=== PATIENT | male | born 1970 | race Caucasian/White ===

== ENCOUNTER 2019-02-23 20:12 | Inpatient (IN) | payer OTHER ==
[2019-02-23 20:57] VITALS: BMI 29.0
--- NOTE | 2019-02-23 21:36 | HP ---
COWS - Scale Resting Pulse: 0= [place] 80 or Below Sweatin=Flushed/Facial Moisture Restless Observation: 0= Sits Still Pupil Size: 0= Normal to Room Light Bone or Joint Aches: 0= None Runny Nose/ Eye Tearin= Runny Nose/Eyes GI Upset > 30mins: 2= Nausea/Diarrhea Tremor Observation: 0= None Yawning Observation: 1= 1-2x During Session Anxiety or Irritability: 1=Feels Anxious/Irritable Goose Flesh Skin: 0=Smooth Skin COWS Score: 8 CIWA Score - Admission Criteria [facility]ASAS Guidelines: Admission for Medically Managed Detox: Requires at least one of the followin. CIWA greater than 12 2. Seizures within the past 24 hours 3. Delirium tremens within the past 24 hours 4. Hallucinations within the past 24 hours 5. Acute intervention needed for co occurring medical disorder 6. Acute intervention needed for co occurring psychiatric disorder 7. Severe withdrawal that cannot be handled at a lower level of care (continued vomiting, continued diarrhea, abnormal vital signs) requiring intravenous medication and/or fluids 8. Admission ROS [facility] - [facility] Chief Complaint: C/O WORSENING WITHDRAWAL SX'S. SEEKING DETOX TXMENT Allergies/Adverse Reactions: Allergies Allergy/AdvReac Type Severity Reaction Status Date / Time No Known Allergies Allergy Verified 02/23/19 20:57 History of Present Illness: 48 Y.O. MALE WITH HX/O OPIOID DEPENDENCE HERE FOR DETOX. CLIENT IS REFERRED BY FELICIANO LEI. HE IS CURRENTLY ON PAROLE WITH A MANDATE TO DETOX. HE CURRENTLY IS USING HEROIN AND SBX WHEN UNABLE TO GET HEROIN. HE REPORTS DAILY USE OF 2 BAGS/ SNIFF. LAST USE 1 DAY AGO, BUT TOOK A "PIECE" OF SBX EARLIER TODAY. PRESENTS WITH C/O WITHDRAWAL SX'S. COWS 8. REPORTS LONGEST CLEAN TIME 30 MONTHS WHILE INCARCERATED.DENIES HX/O DRUG OVERDOSE, SI/HI/AVH. PMHX- DENIES PSYCH- DENIES Exam Limitations: No Limitations - Ebola screening Have you traveled outside of the country in the last 21 days: No (N) Have you had contact with anyone from an Ebola affected area: No Do you have a fever: No - Review of Systems Constitutional: Chills, Loss of Appetite, Night Sweats EENT: reports: Other (CORRECTIVE LENSES) Respiratory: reports: Other (HX/O +PPD REPORTS TXMENT) Cardiac: reports: No Symptoms Reported GI: reports: Diarrhea, Poor Appetite, Abdominal cramping : reports: No Symptoms Reported Musculoskeletal: reports: Back Pain (CHRONIC) Integumentary: reports: No Symptoms Reported Neuro: reports: No Symptoms reported Endocrine: reports: No Symptoms Reported Hematology: reports: No Symptoms Reported Psychiatric: reports: Orientated x3, Anxious Other Systems: Reviewed and Negative Patient History - Patient Medical History Hx Anemia: No Hx Asthma: No Hx Chronic Obstructive Pulmonary Disease (COPD): No Hx Cancer: No Hx Cardiac Disorders: No Hx Congestive Heart Failure: No Hx Hypertension: No Hx Hypercholesterolemia: No Hx Pacemaker: No HX Cerebrovascular Accident: No Hx Seizures: No Hx Dementia: No Hx Diabetes: No Hx Gastrointestinal Disorders: No Hx Liver Disease: No Hx Genitourinary Disorders: No Hx Sexually Transmitted Disorders: No Hx Renal Disease (ESRD): No Hx Thyroid Disease: No Hx Human Immunodeficiency Virus (HIV): No Hx Hepatitis C: Yes (REPORTS TXMENT) Hx Depression: No Hx Suicide Attempt: No Hx Bipolar Disorder: No Hx Schizophrenia: No Other Medical History: HX/O +PPD - Patient Surgical History Past Surgical History: Yes Hx Abdominal Surgery: Yes (1986 INTERNAL BLEEDING) Anesthesia Reaction: No - PPD History Previous Implant?: Yes Documented Results: Positive w/o proof Implanted On Prior R Admission?: No PPD to be Administered?: No - Smoking Cessation Smoking history: Current every day smoker Have you smoked in the past 12 months: Yes Aproximately how many cigarettes per day: 20 Cigars Per Day: 0 Hx Chewing Tobacco Use: Yes Initiated information on smoking cessation: Yes 'Breaking Loose' booklet given: 02/23/19 - Substance & Tx. History Hx Alcohol Use: No Hx Substance Use: Yes Substance Use Type: Heroin Hx Substance Use Treatment: Yes ([facility]) - Substances abused Heroin Substance route: Inhalation Frequency: Daily Amount used: 2 BAGS Age of first use: 38 Date of last use: 02/22/19 Family Disease History - Family Disease History Family Disease History: Heart Disease: Mother (HX/O ALCOHOLISM BY NH), Other: Father (HX/O ALCOHOLISM BY NH), Mother, Brother (HEROIN OVERDOSE - ), Son (HEROIN OVERDOSE ) Admission Physical Exam BHS - Vital Signs Vital Signs: Vital Signs - 24 hr 02/23/19 02/23/19 20:55 21:18 Temperature 97.8 F 97.8 F Respiratory 18 18 Rate Blood Pressure 120/77 120/77 - Physical General Appearance: Yes: Anxious HEENTM: Yes: EOMI, Normocephalic, Normal Voice, DANIEL, Pharynx Normal, Other (TOP /BOTTOM DENTURES) Respiratory: Yes: Chest Non-Tender, Lungs Clear, Normal Breath Sounds, No Respiratory Distress, No Accessory Muscle Use Neck: Yes: No masses,lesions,Nodules, Supple, Trachea in good position Breast: Yes: Breast Exam Deferred Cardiology: Yes: Regular Rhythm, Regular Rate, S1, S2 Abdominal: Yes: Non Tender, Soft, Increased Bowel Sounds, Surgical Scar Genitourinary: Yes: Within Normal Limits (NO C/O) Back: Yes: Normal Inspection Musculoskeletal: Yes: full range of Motion, Gait Steady Extremities: Yes: Normal Capillary Refill, Normal Range of Motion, Non-Tender Neurological: Yes: Fully Oriented, Alert, Motor Strength 5/5, Depressed Affect Integumentary: Yes: Warm Lymphatic: Yes: Within Normal Limits - Diagnostic (1) Opioid dependence with withdrawal Current Visit: Yes Status: Acute (2) History of positive PPD Current Visit: Yes Status: Chronic (3) History of hepatitis C Current Visit: Yes Status: Chronic (4) Nicotine dependence Current Visit: Yes Status: Chronic Qualifiers: Nicotine product type: cigarettes Substance use status: uncomplicated Qualified Code(s): F17.210 - Nicotine dependence, cigarettes, uncomplicated (5) At risk for dehydration Current Visit: Yes Status: Acute (6) Depressed affect Current Visit: Yes Status: Acute Cleared for Admission [facility] - Detox or Rehab [facility] Level of Care: Medically Managed Detox Regimen/Protocol: Methadone Claeared for Rehab Admission: No Breathalyzer - Breathalyzer Breathalyzer: 0 Urine Drug Screen - Test Device Lot number: [id number] Expiration date: 10/20/20 - Control Is test valid?: Yes - Results Drug screen NEGATIVE: No Urine drug screen results: FEN-Fentanyl, MOP-Opiates, BUP-Suboxone Inpatient Rehab Admission - Rehab Decision to Admit Inpatient rehab admission?: No
[2019-02-23] MEDS ORDERED: IBUPROFEN 400 MG TABLET (FP) PO PRN (21:41)
[2019-02-23] MEDS ORDERED: MAGNESIUM HYDROX 2400MG/30ML ORAL SUSPENSION 30 ML CUP PO PRN (21:41)
[2019-02-23] MEDS ORDERED: NICOTINE POLACRILEX 2 MG GUM BUC PRN (21:41)
[2019-02-23] MEDS ORDERED: BISMUTH SUBSALICYLATE 524 MG/30 ML UD PO PRN (21:41)
[2019-02-23] MEDS ORDERED: METHOCARBAMOL 500 MG TABLET PO PRN (21:41)
[2019-02-23] MEDS ORDERED: ONDANSETRON *ODT* 4 MG TABLET SL PRN (21:41)
[2019-02-23] MEDS ORDERED: MAGNESIUM CITRATE 300 ML BOTTLE PO PRN (21:41)
[2019-02-23] MEDS ORDERED: MENTHOL/PHENOL 1 EACH UD MM PRN (21:41)
[2019-02-23] MEDS ORDERED: P-EPHED 60MG/TRIPROLIDI 2.5MG TABLET PO PRN (21:41)
[2019-02-23] MEDS ORDERED: hydrOXYzine PAMOATE 25 MG CAPSULE (FP) PO PRN (21:41)
[2019-02-23] MEDS ORDERED: NALOXONE HCL 0.4 MG/ML VIAL IVPUSH PRN (21:41)
[2019-02-23] MEDS ORDERED: MAG HYDROX/AL HYDROX/SIMETH 30 ML UNIT-DOSE CUP PO PRN (21:41)
[2019-02-23] MEDS ORDERED: cloNIDine HCL 0.1 MG TABLET PO PRN (21:41)
[2019-02-23] MEDS ORDERED: ACETAMINOPHEN 325 MG TABLET (FP) PO PRN ×2 (21:41)
[2019-02-23] MEDS ORDERED: DICYCLOMINE HCL 10 MG CAPSULE PO PRN (21:41)
[2019-02-23] MEDS ORDERED: guaiFENesin 200 MG/10 ML 10 ML UNIT-DOSE CUPS PO PRN (21:41)
[2019-02-23] MEDS ORDERED: METHADONE HCL 10 MG TABLET (FOR DETOX USE ONLY) PO ONE (23:00)
[2019-02-23] MEDS: THIAMINE HCL 100 MG TABLET (FP) PO SCH (23:06)
[2019-02-24] MEDS ORDERED: METHADONE HCL 5 MG TABLET (FOR DETOX USE ONLY) PO ONE (10:00)
[2019-02-24 10:09] LABS: HEMATOCRIT 45.6 % (35.4-49); HEMOGLOBIN 14.8 GM/dL (11.7-16.9); MCH 29.7 pg (25.7-33.7); MCHC 32.6 g/dl (32.0-35.9); MEAN CELL VOLUME 91.2 fl (80-96); MEAN PLT VOLUME 11.1 fl (7.5-11.1); PLATELET COUNT 166 K/MM3 (134-434); RBC 4.99 M/mm3 (4.00-5.60); RDW 13.9 % (11.9-15.9); WHITE BLOOD COUNT 6.4 K/mm3 (4.0-10.0)
[2019-02-24] MEDS: PRENATAL VITAMINS W/ FOLIC ACID TABLET (FP) PO SCH (10:14)
[2019-02-24] MEDS: NICOTINE 21 MG/24 HOURS TOPICAL PATCH TD SCH (10:14)
[2019-02-24 10:17] LABS: ALBUMIN 3.1 g/dl (3.4-5.0); ALK PHOS 48 U/L (45-117); ANION GAP 6 MMOL/L (8-16); BILIRUBIN,TOTAL 0.3 mg/dL (0.2-1); BLOOD UREA NITROGEN 10 mg/dL (7-18); CALCIUM 8.8 mg/dL (8.5-10.1); CHLORIDE 105 mmol/L (98-107); CO2 30 mmol/L (21-32); CREATININE 0.9 mg/dL (0.55-1.3); GLUCOSE,RANDOM 92 mg/dL (74-106); POTASSIUM 3.9 mmol/L (3.5-5.1); SGOT/AST 10 U/L (15-37); SGPT/ALT 15 U/L (13-61); SODIUM 140 mmol/L (136-145); TOT PROT 6.2 g/dl (6.4-8.2)
--- NOTE | 2019-02-24 11:34 | EKG ---
Test Reason : Blood Pressure : / mmHG Vent. Rate : 050 BPM Atrial Rate : 050 BPM P-R Int : 132 ms QRS Dur : 092 ms QT Int : 450 ms P-R-T Axes : 051 052 041 degrees QTc Int : 410 ms SINUS BRADYCARDIA OTHERWISE NORMAL ECG NO PREVIOUS ECGS AVAILABLE Confirmed by EMMA LOUISE MD ([id number]) on 02/24/2019 11:33:53 AM Referred By: Confirmed By:EMMA LOUISE MD
--- NOTE | 2019-02-24 15:11 | PN ---
BHS COWS - Scale Resting Pulse: 0= [place] 80 or Below Sweatin= Chills/Flushing Restless Observation: 1= Difficult to Sit Still Pupil Size: 0= Normal to Room Light Bone or Joint Aches: 0= None Runny Nose/ Eye Tearin= None GI Upset > 30mins: 2= Nausea/Diarrhea Tremor Observation of Outstretched Hands: 0= None Yawning Observation: 2= >3x During Session Anxiety or Irritability: 1=Feels Anxious/Irritable Goose Flesh Skin: 3=Piloerection COWS Score: 10 BHS Progress Note (SOAP) Subjective: Fatigue, Diarrhea, Anxious. Objective: PATIENT A & O X 3, OBSERVED AMBULATING ON UNIT. IN NO ACUTE DISTRESS. 02/24/19 15:12 Vital Signs Temperature 96.3 F L 02/24/19 09:24 Pulse Rate 43 L 02/24/19 09:24 Respiratory Rate 18 02/24/19 09:24 Blood Pressure 126/73 02/24/19 09:24 O2 Sat by Pulse Oximetry (%) Laboratory Tests 02/24/19 02/24/19 02/24/19 07:45 07:45 07:45 WBC 6.4 RBC 4.99 Hgb 14.8 Hct 45.6 MCV 91.2 MCH 29.7 MCHC 32.6 RDW 13.9 Plt Count 166 MPV 11.1 Sodium 140 Potassium 3.9 Chloride 105 Carbon Dioxide 30 Anion Gap 6 L BUN 10 Creatinine 0.9 Creat Clearance w eGFR 90.45 Random Glucose 92 Calcium 8.8 Total Bilirubin 0.3 AST 10 L ALT 15 Alkaline Phosphatase 48 Total Protein 6.2 L Albumin 3.1 L RPR Titer Nonreactive LABS NOTED. Assessment: 02/24/19 15:13 WITHDRAWAL SYMPTOMS. Plan: CONTINUE DETOX. INCREASE DAILY PO FLUID INTAKE. PRN PEPTO-BISMOL PO FOR DIARRHEA.
[2019-02-24] MEDS: THIAMINE HCL 100 MG TABLET (FP) PO SCH (22:47)
[2019-02-24] MEDS: MELATONIN 5 MG TABLETS PO PRN (22:47)
[2019-02-25] MEDS ORDERED: METHADONE HCL 10 MG TABLET (FOR DETOX USE ONLY) PO ONE (10:00)
[2019-02-25] MEDS: PRENATAL VITAMINS W/ FOLIC ACID TABLET (FP) PO SCH (10:19)
[2019-02-25] MEDS: NICOTINE 21 MG/24 HOURS TOPICAL PATCH TD SCH (10:20)
--- NOTE | 2019-02-25 14:00 | PN ---
BHS COWS - Scale Resting Pulse: 0= [place] 80 or Below Sweatin= Chills/Flushing Restless Observation: 0= Sits Still Pupil Size: 0= Normal to Room Light Bone or Joint Aches: 1= Mild Discomfort Runny Nose/ Eye Tearin= Nasal Congestion GI Upset > 30mins: 1= Stomach Cramp Tremor Observation of Outstretched Hands: 0= None Yawning Observation: 1= 1-2x During Session Anxiety or Irritability: 1=Feels Anxious/Irritable Goose Flesh Skin: 0=Smooth Skin COWS Score: 6 BHS Progress Note (SOAP) Subjective: feeling ok today ambulate on hallway social with peers in day room Objective: 02/25/19 14:00 Vital Signs Temperature 97.6 F 02/25/19 09:49 Pulse Rate 46 L 02/25/19 09:49 Respiratory Rate 18 02/25/19 09:49 Blood Pressure 120/71 02/25/19 09:49 O2 Sat by Pulse Oximetry (%) Laboratory Last Values WBC 6.4 K/mm3 (4.0-10.0) 02/24/19 07:45 RBC 4.99 M/mm3 (4.00-5.60) 02/24/19 07:45 Hgb 14.8 GM/dL (11.7-16.9) 02/24/19 07:45 Hct 45.6 % (35.4-49) 02/24/19 07:45 MCV 91.2 fl (80-96) 02/24/19 07:45 MCH 29.7 pg (25.7-33.7) 02/24/19 07:45 MCHC 32.6 g/dl (32.0-35.9) 02/24/19 07:45 RDW 13.9 % (11.9-15.9) 02/24/19 07:45 Plt Count 166 K/MM3 (134-434) 02/24/19 07:45 MPV 11.1 fl (7.5-11.1) 02/24/19 07:45 Sodium 140 mmol/L (136-145) 02/24/19 07:45 Potassium 3.9 mmol/L (3.5-5.1) 02/24/19 07:45 Chloride 105 mmol/L (98-107) 02/24/19 07:45 Carbon Dioxide 30 mmol/L (21-32) 02/24/19 07:45 Anion Gap 6 MMOL/L (8-16) L 02/24/19 07:45 BUN 10 mg/dL (7-18) 02/24/19 07:45 Creatinine 0.9 mg/dL (0.55-1.3) 02/24/19 07:45 Creat Clearance w eGFR 90.45 (>60) 02/24/19 07:45 Random Glucose 92 mg/dL (74-106) 02/24/19 07:45 Calcium 8.8 mg/dL (8.5-10.1) 02/24/19 07:45 Total Bilirubin 0.3 mg/dL (0.2-1) 02/24/19 07:45 AST 10 U/L (15-37) L 02/24/19 07:45 ALT 15 U/L (13-61) 02/24/19 07:45 Alkaline Phosphatase 48 U/L (45-117) 02/24/19 07:45 Total Protein 6.2 g/dl (6.4-8.2) L 02/24/19 07:45 Albumin 3.1 g/dl (3.4-5.0) L 02/24/19 07:45 RPR Titer Nonreactive (NONREACTIVE) 02/24/19 07:45 lab noted Assessment: 02/25/19 14:00 mild withdrawal sx Plan: continue detox
[2019-02-25 20:58] LABS: URINE APPEARANCE CLEAR; URINE BILIRUBIN NEGATIVE (NEGATIVE); URINE COLOR YELLOW; URINE GLUCOSE (UA) NEGATIVE (NEGATIVE); URINE KETONE NEGATIVE (NEGATIVE); URINE LEUK ESTERASE NEGATIVE (NEGATIVE); URINE NITRITE NEGATIVE (NEGATIVE); URINE PROTEIN NEGATIVE (NEGATIVE); URINE UROBILINOGEN 0.2 mg/dL (0.2-1.0)
[2019-02-25] MEDS: THIAMINE HCL 100 MG TABLET (FP) PO SCH (22:09)
[2019-02-25] MEDS: MELATONIN 5 MG TABLETS PO PRN (22:09)
[2019-02-26] MEDS ORDERED: METHADONE HCL 5 MG TABLET (FOR DETOX USE ONLY) PO ONE (06:00)
[2019-02-26 06:44] VITALS: BP 101/60; TEMP 97.6
[2019-02-26 06:52] VITALS: PULSE 62
--- NOTE | 2019-02-26 13:29 | DS ---
[facility] Detox Discharge Summary Admission Date: 02/23/19 Discharge Date: 02/26/19 - History Present History: Opioid Dependence Additional Comments: 48 years old male admitted on 02/23/19 for opiate withdrawal stabilization feeling better today alert no acute distress denies suicidal ideation - Physical Exam Results Vital Signs: Vital Signs Temperature 97.6 F 02/26/19 06:43 Pulse Rate 62 02/26/19 06:51 Respiratory Rate 16 02/26/19 06:43 Blood Pressure 101/60 02/26/19 06:43 O2 Sat by Pulse Oximetry (%) Pertinent Admission Physical Exam Findings: opiate withdrawal sx Laboratory Last Values WBC 6.4 K/mm3 (4.0-10.0) 02/24/19 07:45 RBC 4.99 M/mm3 (4.00-5.60) 02/24/19 07:45 Hgb 14.8 GM/dL (11.7-16.9) 02/24/19 07:45 Hct 45.6 % (35.4-49) 02/24/19 07:45 MCV 91.2 fl (80-96) 02/24/19 07:45 MCH 29.7 pg (25.7-33.7) 02/24/19 07:45 MCHC 32.6 g/dl (32.0-35.9) 02/24/19 07:45 RDW 13.9 % (11.9-15.9) 02/24/19 07:45 Plt Count 166 K/MM3 (134-434) 02/24/19 07:45 MPV 11.1 fl (7.5-11.1) 02/24/19 07:45 Sodium 140 mmol/L (136-145) 02/24/19 07:45 Potassium 3.9 mmol/L (3.5-5.1) 02/24/19 07:45 Chloride 105 mmol/L (98-107) 02/24/19 07:45 Carbon Dioxide 30 mmol/L (21-32) 02/24/19 07:45 Anion Gap 6 MMOL/L (8-16) L 02/24/19 07:45 BUN 10 mg/dL (7-18) 02/24/19 07:45 Creatinine 0.9 mg/dL (0.55-1.3) 02/24/19 07:45 Creat Clearance w eGFR 90.45 (>60) 02/24/19 07:45 Random Glucose 92 mg/dL (74-106) 02/24/19 07:45 Calcium 8.8 mg/dL (8.5-10.1) 02/24/19 07:45 Total Bilirubin 0.3 mg/dL (0.2-1) 02/24/19 07:45 AST 10 U/L (15-37) L 02/24/19 07:45 ALT 15 U/L (13-61) 02/24/19 07:45 Alkaline Phosphatase 48 U/L (45-117) 02/24/19 07:45 Total Protein 6.2 g/dl (6.4-8.2) L 02/24/19 07:45 Albumin 3.1 g/dl (3.4-5.0) L 02/24/19 07:45 Urine Color Yellow 02/25/19 09:41 Urine Appearance Clear 02/25/19 09:41 Urine pH 6.0 (5.0-8.0) 02/25/19 09:41 Ur Specific [place] 1.016 (1.010-1.035) 02/25/19 09:41 Urine Protein Negative (NEGATIVE) 02/25/19 09:41 Urine Glucose (UA) Negative (NEGATIVE) 02/25/19 09:41 Urine Ketones Negative (NEGATIVE) 02/25/19 09:41 Urine Blood Negative (NEGATIVE) 02/25/19 09:41 Urine Nitrite Negative (NEGATIVE) 02/25/19 09:41 Urine Bilirubin Negative (NEGATIVE) 02/25/19 09:41 Urine Urobilinogen 0.2 mg/dL (0.2-1.0) 02/25/19 09:41 Ur Leukocyte Esterase Negative (NEGATIVE) 02/25/19 09:41 RPR Titer Nonreactive (NONREACTIVE) 02/24/19 07:45 lab noted - Treatment Hospital Course: Detox Protocol Followed, Detoxed Safely, Responded well, Discharged Condition Good, Rehab Referral Accepted Patient has Accepted a Rehab Referral to: [facility] - Medication Discharge Medications: Ambulatory Orders NK [No Known Home Medication] 02/23/19 - Diagnosis (1) Opioid dependence with withdrawal Status: Acute (2) History of positive PPD Status: Resolved (3) History of hepatitis C Status: Chronic (4) Nicotine dependence Status: Acute Qualifiers: Nicotine product type: cigarettes Substance use status: in withdrawal Qualified Code(s): F17.213 - Nicotine dependence, cigarettes, with withdrawal - AMA Did Patient Leave Against Medical Advice: No
== END 2019-02-26 08:25 | disposition home or self-care (01) | DRG 773 ==
LOC: YASAS 20:12 → Y3N 22:32
PROVIDERS: ADMIT Surgery; ATTEND Surgery
PROC: HZ2ZZZZ Detoxification Services for Substance Abuse Treatment (ICD-10-PCS; principal; 2019-02-23)
DX: F11.23 Opioid dependence with withdrawal (principal); F17.213 Nicotine dependence, cigarettes, with withdrawal; R76.11 Nonspecific reaction to tuberculin skin test without active tuberculosis; R63.8 Other symptoms and signs concerning food and fluid intake; Z86.19 Personal history of other infectious and parasitic diseases
CPT/HCPCS: 36415; 80053; 81003; 85027; 86593; 93005; 93010

== ENCOUNTER 2021-02-04 13:17 | Inpatient (IN) | payer OTHER ==
[2021-02-04 14:34] VITALS: BMI 26.8
[2021-02-04] MEDS ORDERED: NICOTINE POLACRILEX 2 MG GUM BUC PRN (17:02)
[2021-02-04] MEDS ORDERED: MAGNESIUM CITRATE 300 ML BOTTLE PO PRN (17:02)
[2021-02-04] MEDS ORDERED: ONDANSETRON *ODT* 4 MG TABLET SL PRN (17:02)
[2021-02-04] MEDS ORDERED: METHOCARBAMOL 500 MG TABLET PO PRN (17:02)
[2021-02-04] MEDS ORDERED: BISMUTH SUBSALICYLATE 524 MG/30 ML UD PO PRN (17:02)
[2021-02-04] MEDS ORDERED: ACETAMINOPHEN 325 MG TABLET (FP) PO PRN ×2 (17:02)
[2021-02-04] MEDS ORDERED: MAGNESIUM HYDROX 2400MG/30ML ORAL SUSPENSION 30 ML CUP PO PRN (17:02)
[2021-02-04] MEDS ORDERED: MAG HYDROX/AL HYDROX/SIMETH 30 ML UNIT-DOSE CUP PO PRN (17:02)
[2021-02-04] MEDS ORDERED: MENTHOL/PHENOL 1 EACH UD MM PRN (17:02)
[2021-02-04] MEDS: hydrOXYzine PAMOATE 25 MG CAPSULE (FP) PO SCH ×2 (18:46→22:41)
[2021-02-04] MEDS: IBUPROFEN 400 MG TABLET (FP) PO PRN (18:46)
[2021-02-04] MEDS: NICOTINE 21 MG/24 HOURS TOPICAL PATCH TD SCH (19:11)
[2021-02-04] MEDS: THIAMINE HCL 100 MG TABLET (FP) PO SCH (22:41)
[2021-02-04] MEDS: MELATONIN 5 MG TABLETS PO SCH (22:41)
[2021-02-05] MEDS: hydrOXYzine PAMOATE 25 MG CAPSULE (FP) PO SCH ×5 (05:46→22:23)
[2021-02-05] MEDS ORDERED: cloNIDine HCL 0.1 MG TABLET PO PRN (09:57)
[2021-02-05] MEDS ORDERED: METHADONE HCL 10 MG TABLET (FOR DETOX USE ONLY) PO ONE (09:57)
[2021-02-05 10:44] LABS: POTASSIUM 4.5 mmol/L (3.5-5.1)
[2021-02-05] MEDS: PRENATAL VITAMINS W/ FOLIC ACID TABLET (FP) PO SCH (10:45)
[2021-02-05] MEDS: NICOTINE 21 MG/24 HOURS TOPICAL PATCH TD SCH (10:46)
[2021-02-05 10:49] LABS: ALBUMIN 3.4 g/dl (3.4-5.0); BLOOD UREA NITROGEN 10.3 mg/dL (7-18)
[2021-02-05 10:51] LABS: HEMATOCRIT 43.1 % (35.4-49); HEMOGLOBIN 14.3 GM/dL (11.7-16.9); MCH 30.6 pg (25.7-33.7); MCHC 33.1 g/dl (32.0-35.9); MEAN CELL VOLUME 92.5 fl (80-96); MEAN PLT VOLUME 10.6 fl (7.5-11.1); PLATELET COUNT 215 K/MM3 (134-434); RBC 4.66 M/mm3 (4.00-5.60); RDW 13.4 % (11.9-15.9)
[2021-02-05 10:52] LABS: CREATININE 1.1 mg/dL (0.55-1.3)
[2021-02-05 10:53] LABS: BILIRUBIN,TOTAL 0.4 mg/dL (0.2-1); TOT PROT 7.2 g/dl (6.4-8.2)
[2021-02-05] MEDS: MELATONIN 5 MG TABLETS PO SCH (22:23)
[2021-02-05] MEDS: THIAMINE HCL 100 MG TABLET (FP) PO SCH (22:23)
[2021-02-06] MEDS: hydrOXYzine PAMOATE 25 MG CAPSULE (FP) PO SCH ×6 (05:49→22:39)
[2021-02-06] MEDS ORDERED: METHADONE HCL 10 MG TABLET (FOR DETOX USE ONLY) ONE (09:40)
[2021-02-06] MEDS ORDERED: METHADONE HCL 5 MG TABLET (FOR DETOX USE ONLY) ONE (09:40)
[2021-02-06] MEDS ORDERED: METHADONE (DETOX) 20 MG, METHADONE (DETOX) 5 MG PO ONE (10:00)
[2021-02-06] MEDS: PRENATAL VITAMINS W/ FOLIC ACID TABLET (FP) PO SCH (10:33)
[2021-02-06] MEDS: NICOTINE 21 MG/24 HOURS TOPICAL PATCH TD SCH (10:33)
[2021-02-06] MEDS: THIAMINE HCL 100 MG TABLET (FP) PO SCH (22:39)
[2021-02-06] MEDS: MELATONIN 5 MG TABLETS PO SCH (22:39)
[2021-02-06] MEDS: IBUPROFEN 400 MG TABLET (FP) PO PRN (22:41)
[2021-02-07] MEDS: hydrOXYzine PAMOATE 25 MG CAPSULE (FP) PO SCH (07:00)
[2021-02-07] MEDS ORDERED: METHADONE HCL 10 MG TABLET (FOR DETOX USE ONLY) PO ONE (10:00)
[2021-02-07] MEDS: NICOTINE 21 MG/24 HOURS TOPICAL PATCH TD SCH (10:11)
[2021-02-07] MEDS: PRENATAL VITAMINS W/ FOLIC ACID TABLET (FP) PO SCH (10:11)
[2021-02-07] MEDS: THIAMINE HCL 100 MG TABLET (FP) PO SCH (22:32)
[2021-02-07] MEDS: MELATONIN 5 MG TABLETS PO SCH (22:32)
[2021-02-08] MEDS ORDERED: METHADONE HCL 10 MG TABLET (FOR DETOX USE ONLY) PO ONE (10:00)
[2021-02-08] MEDS ORDERED: METHADONE (DETOX) 10 MG, METHADONE (DETOX) 5 MG PO ONE (10:00)
[2021-02-08] MEDS: PRENATAL VITAMINS W/ FOLIC ACID TABLET (FP) PO SCH (10:49)
[2021-02-08] MEDS: NICOTINE 21 MG/24 HOURS TOPICAL PATCH TD SCH (10:49)
[2021-02-08] MEDS ORDERED: cloNIDine HCL 0.1 MG TABLET PO PRN (14:03)
[2021-02-08] MEDS: MELATONIN 5 MG TABLETS PO SCH (22:38)
[2021-02-08] MEDS: THIAMINE HCL 100 MG TABLET (FP) PO SCH (22:38)
[2021-02-09] MEDS: IBUPROFEN 400 MG TABLET (FP) PO PRN (06:27)
[2021-02-09 09:45] VITALS: BP 158/67; PULSE 57; TEMP 97.5
[2021-02-09] MEDS ORDERED: METHADONE HCL 10 MG TABLET (FOR DETOX USE ONLY) PO ONE (10:00)
[2021-02-09] MEDS: PRENATAL VITAMINS W/ FOLIC ACID TABLET (FP) PO SCH (10:13)
[2021-02-09] MEDS: NICOTINE 21 MG/24 HOURS TOPICAL PATCH TD SCH (10:13)
[2021-02-10] MEDS ORDERED: METHADONE HCL 5 MG TABLET (FOR DETOX USE ONLY) PO ONE (06:00)
== END 2021-02-09 10:40 | disposition home or self-care (01) | DRG 773 ==
LOC: YASAS 13:17 → Y6N 16:35 → UNDOADMIN 16:35 → Y6N 17:24
PROVIDERS: ADMIT Allergy & Immunology; ATTEND Allergy & Immunology
PROC: HZ2ZZZZ Detoxification Services for Substance Abuse Treatment (ICD-10-PCS; principal; 2021-02-04)
DX: F11.23 Opioid dependence with withdrawal (principal); F17.210 Nicotine dependence, cigarettes, uncomplicated; M19.012 Primary osteoarthritis, left shoulder; R73.9 Hyperglycemia, unspecified; R76.11 Nonspecific reaction to tuberculin skin test without active tuberculosis; R20.0 Anesthesia of skin; Z86.19 Personal history of other infectious and parasitic diseases
CPT/HCPCS: 36415; 71046-TC-FY; 80053; 82962; 85027; 86780; 93005; 93010; C9803; Q0162; U0003